=== PATIENT | female | born 1980 | race Caucasian/White ===

== ENCOUNTER 2017-01-02 22:30 | Emergency (ER) | payer MEDICAID, OTHER ==
[2017-01-02 22:45] VITALS: BP 139/85; PULSE 98; RESP 18; TEMP 98.6; O2SAT 98
[2017-01-02 23:59] LABS: BASO # 0.1 K/uL (0.0-0.2); BASO % 0.9 % (0.0-2.0); EOS # 0.3 K/uL (0.0-0.7); EOS % 2.3 % (0.0-4.0); LYMPH # 2.7 K/uL (1.0-4.3); LYMPH % 20.6 % (20.0-40.0); MEAN CELL VOLUME 85.3 fL (81.0-99.0); MEAN CORPUSCULAR HEMOGLOBIN 28.5 pg (27.0-31.0); MEAN CORPUSCULAR HGB CONC 33.4 g/dL (33.0-37.0); MEAN PLATELET VOLUME 9.2 fL (7.2-11.7); MONO # 0.6 K/uL (0.0-0.8); MONO % 4.8 % (0.0-10.0); NEUT # 9.5 K/uL (1.8-7.0); NEUT % 71.4 % (50.0-75.0); NRBC % 0.1 % (0.0-2.0); RBC 4.57 Mil/uL (3.80-5.20); RED CELL DISTRIBUTION WIDTH 13.9 % (11.5-14.5); WHITE BLOOD COUNT 13.3 K/uL (4.8-10.8)
[2017-01-03 00:02] LABS: HCG,QUALITATIVE URINE NEGATIVE (NEGATIVE)
[2017-01-03 00:08] LABS: SQUAMOUS EPITHIAL 11 /hpf (0-5); URINE BACTERIA RARE (<OCC); URINE BILIRUBIN NEGATIVE (NEGATIVE); URINE BLOOD NEGATIVE (NEGATIVE); URINE CLARITY Hazy (Clear); URINE COLOR Yellow (YELLOW); URINE GLUCOSE (UA) NORMAL (Normal); URINE LEUKOCYTE ESTERASE NEG Leu/uL (Negative); URINE NITRATE NEGATIVE (NEGATIVE); URINE PROTEIN NEGATIVE (NEGATIVE); URINE UROBILINOGEN NORMAL mg/dL (0.2-1.0)
[2017-01-03 00:10] LABS: BARBITURATES, UR NEGATIVE (NEGATIVE); BENZODIAZEPINES, UR NEGATIVE (NEGATIVE)
[2017-01-03 00:13] LABS: OPIATES, UR NEGATIVE (NEGATIVE)
[2017-01-03 00:14] LABS: PHENCYCLIDINE, UR NEGATIVE (NEGATIVE)
[2017-01-03 00:19] LABS: ALBUMIN 4.1 g/dL (3.5-5.0)
[2017-01-03 00:22] LABS: ALB/GLOB RATIO 1.3 (1.0-2.1); AST/SGOT 25 U/L (14-36); BLOOD UREA NITROGEN 12 mg/dL (7-17); GFR AFRICAN-AMERICAN > 60; GFR NON-AFRICAN AMERICAN > 60
[2017-01-03 00:23] LABS: ALT/SGPT 31 U/L (9-52); CALCIUM 9.3 mg/dl (8.6-10.4)
--- NOTE | 2017-01-03 02:24 | C.PDOC ---
History Of Present Illness 36 y/o female presents to the ED requesting aid for sleep. Patient has been depressed for the last few days causing difficulty to sleep. H/o similar episodes in the past with admission- pt notes she does not want to be admitted today. Notes she has not taken her chronic medication secondary to having baby. Otherwise, denies any physical complaints at this time. (-) SI (-) HI Time Seen by Provider: 01/02/17 23:31 Chief Complaint (Nursing): Medical Clearance History Per: Patient History/Exam Limitations: no limitations Onset/Duration Of Symptoms: Gradual Current Symptoms Are (Timing): Still Present Severity: None Pain Scale Rating Of: 0 Recent travel outside of the [place]: No Additional History Per: Family Past Medical History Reviewed: Historical Data, Nursing Documentation, Vital Signs Vital Signs: Last Vital Signs Temp 98.6 F 01/02/17 22:40 Pulse 98 H 01/02/17 22:40 Resp 18 01/02/17 22:40 BP 139/85 01/02/17 22:40 Pulse Ox 98 01/03/17 02:28 - Medical History PMH: Asthma, Depression Family History: States: Unknown Family Hx - Social History Hx Tobacco Use: No Hx Alcohol Use: No Hx Substance Use: No - Immunization History Hx Tetanus Toxoid Vaccination: No Hx Influenza Vaccination: No Hx Pneumococcal Vaccination: No Review Of Systems Except As Marked, All Systems Reviewed And Found Negative. Constitutional: Negative for: Fever, Chills Cardiovascular: Negative for: Chest Pain, Palpitations Respiratory: Negative for: Shortness of Breath Gastrointestinal: Negative for: Nausea, Vomiting, Abdominal Pain Neurological: Negative for: Weakness, Numbness, Headache, Dizziness Psych: Positive for: Depression. Negative for: Suicidal ideation Physical Exam - Physical Exam Appears: Non-toxic, No Acute Distress Skin: Normal Color, Warm, Dry Head: Atraumatic, Normacephalic Eye(s): bilateral: Normal Inspection, EOMI Nose: Normal Oral Mucosa: Moist Neck: Normal ROM, Supple Chest: Symmetrical Cardiovascular: Rhythm Regular Respiratory: Normal Breath Sounds Extremity: Bilateral: Atraumatic Neurological/Psych: Oriented x3, Normal Speech, Normal Cognition, Normal Cranial Nerves Gait: Steady ED Course And Treatment - Laboratory Results Result Diagrams: 01/02/17 23:55 01/02/17 23:55 O2 Sat by Pulse Oximetry: 98 Pulse Ox Interpretation: Normal Progress Note: Blood work, urinalysis ordered and reviewed. Pending bag worker evaluation. Pt left prior to crisis evalaution and re-evaluation. Disposition - Disposition Referrals: Olivia Wright MD [Primary Care Provider] - Disposition: ELOPEMENT - ER ONLY Disposition Time: 22:45 Condition: STABLE - Clinical Impression Clinical Impression: Insomnia - PA / PODIATRIC MEDICINE PROFESSOR / Resident Statement MD/DO has reviewed & agrees with the documentation as recorded. - Scribe Statement The provider has reviewed the documentation as recorded by the Scribbenito Tompkins All medical record entries made by the Melecio were at my direction and personally dictated by me. I have reviewed the chart and agree that the record accurately reflects my personal performance of the history, physical exam, medical decision making, and the department course for this patient. I have also personally directed, reviewed, and agree with the discharge instructions and disposition.
== END 2017-01-02 23:31 | disposition left against medical advice (07) ==
LOC: C.ER 22:30 → SUPCPDRO 22:30 → C.ER 23:31
DX: G47.00 Insomnia, unspecified (principal)